=== PATIENT | female | born 1980 | race Caucasian/White ===

== ENCOUNTER 2017-04-22 22:39 | Emergency (ER) | payer OTHER ==
[~2017-04-22] VITALS: Ht 175.3 cm; Wt 114.6 kg
[~2017-04-22 22:39] MED LIST: ADVAIR 250/501 DISK IH; ADVIL200 M1 PO; ANAPROX DS550 M1 PO; BACTRIM,SEPT1 TABLET PO; CEFDINIR300 MG PO; CIPRO500 MG PO; CITRATE OF MAG296 ML PO; CLEOCIN300 MG PO; COL-RITE100 M1 PO; ENDOCET 5-3251 EACH PO; FENTANYL1 EAC4 TD; FIORICET,ESG1 TABLET PO; FLEXERIL10 MG PO; GABAPENTIN; HYDROCODON-ACE1 EAC5 PO; HYDROCODON-ACE1 EAC9 PO; IBUPROFEN200 M1 PO; KLONOPIN0.5 M1 PO; LATUDA20 MG PO; LATUDA40 MG PO; MELOXICAM15 MG PO; MIRALAX17 GM PO; MIRALAX255 GM PO; MORPHINE SULFAT30 M5 PO; MOTRIN800 MG PO; NOHOMEMEDS; OMEPRAZOLE40 M1 PO; PHENERGAN12.5 M1 PO; SEROQUEL XR150 MG PO; TOPAMAX; TOPAMAX25 MG PO; TORADOL10 MG; TRAMADOL HCL50 MG; ULTRAM; ULTRAM50 MG PO; VENLAFAXINE HCL75 M3 PO; VENTOLIN HFA18 GM IH; VIT B12; VITAMIN B12 100MCG PO; VOLTAREN75 MG PO; ZOFRAN ODT4 MG PO; ZOHYDRO ER10 M1 PO
[2017-04-22 23:48] LABS: EOSINOPHIL COUNT 0.2 K/uL (0-0.3); HEMATOCRIT 33.5 % (36.0-46.0); IMMATURE GRANULOCYTE (%) 0.4 % (0.0-0.7); INSTRUMENT ABS NEUTROPHIL CT 4.7 K/uL; LYMPHOCYTE COUNT 2.6 K/uL (1.0-2.8); MCH 29.9 PG (29.0-34.0); MCHC 32.5 G/DL (30.0-36.0); MCV 91.8 FL (83-99); MEAN PLAT.VOLUME 10.1 uM^3 (9.5-12.4); MONOCYTE (%) 8.2 % (3-12); MONOCYTE COUNT 0.7 K/uL (0-0.8); NEUTROPHIL (%) 57.3 % (45-76); NEUTROPHIL COUNT 4.7 K/uL (1.8-6.4); PLATELET COUNT 226 K/uL (156-360); RBC DIS.WIDTH-CV 12.8 % (11.8-14.6); RBC DIS.WIDTH-SD 42.9 % (39-53); RED BLOOD COUNT 3.65 M/uL (3.80-5.20); WHITE BLOOD COUNT 8.2 K/uL (4.1-10.2)
[2017-04-22 23:58] LABS: CHLORIDE 104 mEq/L (99-109); SODIUM 138 mEq/L (136-147)
[2017-04-22 23:59] LABS: MAGNESIUM 1.8 mg/dL (1.3-2.7)
[2017-04-23] LABS: D-DIMER ELISA 0.31 mg/L FEU (< 0.57)
[2017-04-23 00:01] LABS: GLUCOSE 111 mg/dL (70-99)
[2017-04-23 00:02] LABS: ANION GAP 9 MEQ/L (2-14)
[2017-04-23 00:03] LABS: TOTAL BILIRUBIN 0.2 mg/dL (0.0-1.0)
[2017-04-23 00:04] LABS: ALKALINE PHOSPHATASE 59 IU/L (3-129); GFR ESTIMATE (CALCULATED) > 59 mL/min/
[2017-04-23 00:05] LABS: UREA NITROGEN (BUN) 9 mg/dL (9-23)
[2017-04-23 00:13] LABS: TROP-I INTERPRETATION NEGATIVE; TROPONIN-I < 0.01 ng/mL (0.0-0.30)
[2017-04-23 00:14] LABS: QUANTITATIVE HCG < 4.0 MIU/ML
[2017-04-23 00:25] LABS: ADD MIUA? NO; BILIRUBIN NEGATIVE; BLOOD NEGATIVE; COLOR YELLOW ((YELLOW)); GLUCOSE (STRIP) NEGATIVE; KETONES NEGATIVE; LEUKOCYTES NEGATIVE; NITRITE NEGATIVE; PROTEIN (STRIP) NEGATIVE; SPECIFIC GRAVITY 1.016 (1.000-1.030); UCUL ADDED? NO; UROBILINOGEN 0.2 MG/DL (0.2-1.0)
[2017-04-23] MEDS ORDERED: BENTYL20 MG PO (00:58)
[2017-04-23 01:20] VITALS: BP 147/80
== END 2017-04-23 01:22 | disposition home or self-care (01) ==
LOC: EME 22:39
PROVIDERS: Emergency Medicine
DX: R10.9 Unspecified abdominal pain (principal); R19.7 Diarrhea, unspecified; M79.1 Myalgia; F17.200 Nicotine dependence, unspecified, uncomplicated
CPT/HCPCS: 71020; 74176; 80053; 81003; 83735; 84484; 84702; 85025; 85379; 93005; 99281; 99285; J1885; J7030

== ENCOUNTER 2017-07-08 20:51 | Emergency (ER) | payer OTHER ==
[~2017-07-08] VITALS: Ht 175.3 cm; Wt 114.2 kg
[~2017-07-08 20:51] MED LIST changes: +BENTYL20 MG PO
[2017-07-09 00:19] LABS: HEMATOCRIT 35.7 % (36.0-46.0); MCH 29.5 PG (29.0-34.0); MCHC 32.2 G/DL (30.0-36.0); MCV 91.5 FL (83-99); MEAN PLAT.VOLUME 9.8 uM^3 (9.5-12.4); PLATELET COUNT 248 K/uL (156-360); RBC DIS.WIDTH-SD 43.3 % (39-53); WHITE BLOOD COUNT 9.6 K/uL (4.1-10.2)
[2017-07-09 00:34] LABS: CHLORIDE 102 mEq/L (99-109); POTASSIUM 3.9 mEq/L (3.7-5.4); SODIUM 139 mEq/L (136-147)
[2017-07-09 00:36] LABS: GLUCOSE 99 mg/dL (70-99)
[2017-07-09 00:37] LABS: ANION GAP 9 MEQ/L (2-14)
[2017-07-09 00:38] LABS: TOTAL BILIRUBIN 0.3 mg/dL (0.0-1.0)
[2017-07-09 00:39] LABS: ALKALINE PHOSPHATASE 65 IU/L (3-129)
[2017-07-09 00:40] LABS: GFR ESTIMATE (CALCULATED) > 59 mL/min/
[2017-07-09 00:41] LABS: UREA NITROGEN (BUN) 10 mg/dL (9-23)
[2017-07-09 00:43] LABS: LIPASE 25 U/L (1.0-51.0)
[2017-07-09 00:44] LABS: ADD MIUA? NO; BILIRUBIN NEGATIVE; BLOOD NEGATIVE; COLOR YELLOW ((YELLOW)); GLUCOSE (STRIP) NEGATIVE; KETONES NEGATIVE; LEUKOCYTES NEGATIVE; NITRITE NEGATIVE; PROTEIN (STRIP) NEGATIVE; UROBILINOGEN 0.2 MG/DL (0.2-1.0)
[2017-07-09 00:48] LABS: QUANTITATIVE HCG < 4.0 MIU/ML
[2017-07-09 00:49] LABS: UCUL ADDED? NO
[2017-07-09 02:30] VITALS: BP 146/98
== END 2017-07-09 02:35 | disposition home or self-care (01) ==
LOC: RME 20:51 → EME 20:51 → RME 07-09 02:35
PROVIDERS: Emergency Medicine
DX: R10.31 Right lower quadrant pain (principal); M79.89 Other specified soft tissue disorders; Z88.0 Allergy status to penicillin
CPT/HCPCS: 74177; 80053; 81003; 83690; 84702; 85027; 99281; 99284

== ENCOUNTER 2017-12-03 18:17 | Emergency (ER) | payer OTHER ==
[~2017-12-03] VITALS: Ht 175.3 cm; Wt 114.6 kg
[~2017-12-03 18:17] MED LIST changes: +DURAGESIC12 MCG TD; +PERCOCET 5/31 TABLET PO
[2017-12-03 19:15] LABS: HEMATOCRIT 34.1 % (36.0-46.0); HEMOGLOBIN 11.3 G/DL (11.9-15.5); MCH 29.7 PG (29.0-34.0); MCHC 33.1 G/DL (30.0-36.0); MCV 89.5 FL (83-99); PLATELET COUNT 275 K/uL (156-360); RBC DIS.WIDTH-CV 12.9 % (11.8-14.6); RBC DIS.WIDTH-SD 42.4 % (39-53); RED BLOOD COUNT 3.81 M/uL (3.80-5.20); WHITE BLOOD COUNT 7.4 K/uL (4.1-10.2)
[2017-12-03 19:26] LABS: ALBUMIN 4.2 g/dL (3.2-4.8); CHLORIDE 106 mEq/L (99-109); POTASSIUM 3.8 mEq/L (3.7-5.4); SODIUM 137 mEq/L (136-147)
[2017-12-03 19:27] LABS: APPEARANCE SL.HAZY ((CLEAR)); BILIRUBIN NEGATIVE; BLOOD NEGATIVE; COLOR YELLOW ((YELLOW)); GLUCOSE (STRIP) NEGATIVE; KETONES NEGATIVE; LEUKOCYTES NEGATIVE; NITRITE NEGATIVE; PROTEIN (STRIP) NEGATIVE; SPECIFIC GRAVITY 1.026 (1.000-1.030); UROBILINOGEN 0.2 MG/DL (0.2-1.0)
[2017-12-03 19:28] LABS: GLUCOSE 80 mg/dL (70-99); TOTAL PROTEIN 6.9 g/dL (6.4-8.3)
[2017-12-03 19:30] LABS: TOTAL BILIRUBIN 0.2 mg/dL (0.0-1.0)
[2017-12-03 19:32] LABS: ALKALINE PHOSPHATASE 64 IU/L (3-129); CREATININE 0.7 mg/dL (0.6-1.3); GFR ESTIMATE (CALCULATED) > 59 mL/min/
[2017-12-03 19:33] LABS: AST (GOT) 15 IU/L (2-34); UREA NITROGEN (BUN) 11 mg/dL (9-23)
[2017-12-03 19:35] LABS: ALT (GPT) 9 IU/L (3-49); LIPASE 74 U/L (1.0-51.0)
[2017-12-03 19:38] LABS: BACTERIA RARE /HPF; EPITHELIAL CELLS RARE /HPF; HYALINE CASTS 0-5 /LPF; MUCUS 1+ /LPF; UCUL ADDED? NO; WHITE BLOOD CELLS 0-5 /HPF (0-5)
[2017-12-03 19:42] LABS: QUANTITATIVE HCG < 4.0 MIU/ML
[2017-12-03 20:43] LABS: AMYLASE 33 IU/L (1-118)
[2017-12-03] MEDS ORDERED: MOTRIN600 MG PO (22:25)
[2017-12-03] MEDS ORDERED: REGLAN5 MG PO (22:25)
[2017-12-03 22:41] VITALS: BP 145/81
== END 2017-12-03 22:41 | disposition home or self-care (01) ==
LOC: EME 18:17
DX: R10.31 Right lower quadrant pain (principal); F17.200 Nicotine dependence, unspecified, uncomplicated; Z90.49 Acquired absence of other specified parts of digestive tract; F41.9 Anxiety disorder, unspecified; Z88.0 Allergy status to penicillin
CPT/HCPCS: 74177; 80053; 81003; 82150; 83690; 84702; 85027; 99281; 99284; J2765; J3010; J7030

== ENCOUNTER → 2018-02-18 | Outpatient (CLI) | payer OTHER ==
[~2018-02-18] VITALS: Ht 175.3 cm; Wt 108.9 kg
[~2018-02-18] MED LIST changes: +MOTRIN600 MG PO; +REGLAN5 MG PO
== END | disposition home or self-care (01) ==
LOC: AMB 07:00
PROC: 0DB68ZX Excision of Stomach, Via Natural or Artificial Opening Endoscopic, Diagnostic (ICD-10-PCS; principal; 2018-02-18)
DX: K25.9 Gastric ulcer, unspecified as acute or chronic, without hemorrhage or perforation (principal); K29.70 Gastritis, unspecified, without bleeding; B96.81 Helicobacter pylori [H. pylori] as the cause of diseases classified elsewhere; K57.10 Diverticulosis of small intestine without perforation or abscess without bleeding; K44.9 Diaphragmatic hernia without obstruction or gangrene; K21.9 Gastro-esophageal reflux disease without esophagitis; F17.200 Nicotine dependence, unspecified, uncomplicated; Z80.0 Family history of malignant neoplasm of digestive organs; Z82.49 Family history of ischemic heart disease and other diseases of the circulatory system
CPT/HCPCS: 88305; 88342 TC; J2250

== ENCOUNTER 2018-05-12 18:00 | Emergency (ER) | payer OTHER ==
[~2018-05-12] VITALS: Ht 175.3 cm; Wt 114.7 kg
[2018-05-12 19:13] LABS: HEMATOCRIT 33.3 % (36.0-46.0); HEMOGLOBIN 11.2 G/DL (11.9-15.5); MCH 29.4 PG (29.0-34.0); MCHC 33.6 G/DL (30.0-36.0); MCV 87.4 FL (83-99); NRBC (%) 0.2 /100 WBC (0-0); PLATELET COUNT 249 K/uL (156-360); RBC DIS.WIDTH-CV 13.2 % (11.8-14.6); RBC DIS.WIDTH-SD 42.1 % (39-53); RED BLOOD COUNT 3.81 M/uL (3.80-5.20); WHITE BLOOD COUNT 8.1 K/uL (4.1-10.2)
[2018-05-12 19:27] LABS: CHLORIDE 107 mEq/L (99-109); POTASSIUM 4.3 mEq/L (3.7-5.4); SODIUM 139 mEq/L (136-147)
[2018-05-12 19:29] LABS: GLUCOSE 117 mg/dL (70-99)
[2018-05-12 19:33] LABS: CREATININE 0.8 mg/dL (0.6-1.3); GFR ESTIMATE (CALCULATED) > 59 mL/min/
[2018-05-12 19:34] LABS: UREA NITROGEN (BUN) 9 mg/dL (9-23)
[2018-05-12 19:35] LABS: TROP-I INTERPRETATION NEGATIVE; TROPONIN-I < 0.01 ng/mL (0.0-0.30)
[2018-05-12] MEDS ORDERED: GUAIFENESIN AC473 ML PO (20:36)
[2018-05-12] MEDS ORDERED: PREDNISONE20 MG PO (20:38)
[2018-05-12 20:56] VITALS: BP 133/82
== END 2018-05-12 20:57 | disposition home or self-care (01) ==
LOC: EME 18:00
PROVIDERS: Physician Assistant
DX: J45.901 Unspecified asthma with (acute) exacerbation (principal); F41.9 Anxiety disorder, unspecified; F17.200 Nicotine dependence, unspecified, uncomplicated; Z90.49 Acquired absence of other specified parts of digestive tract; Z90.710 Acquired absence of both cervix and uterus; Z88.0 Allergy status to penicillin; Z88.8 Allergy status to other drugs, medicaments and biological substances
CPT/HCPCS: 71046; 80048; 84484; 85027; 93005; 94640; 99281; 99285; J1100